=== PATIENT | female | born 1965 | race Caucasian/White ===

== ENCOUNTER 2021-06-18 19:38 | Emergency (ER) | payer BC ==
[2021-06-18 20:18] LABS: HEMOGLOBIN 11.9 gm/dl (12.3-15.3); RED BLOOD COUNT 4.14 M/UL (4.00-5.10); WHITE BLOOD COUNT 10.3 K/UL (4.5-11.0)
[2021-06-18 20:47] LABS: BUN/CREATININE RATIO 14 (0-10)
== END 2021-06-19 00:15 | disposition home or self-care (01) ==
LOC: ER1 19:38
PROVIDERS: Physician Assistant
DX: R07.89 Other chest pain (principal); I10 Essential (primary) hypertension; F17.200 Nicotine dependence, unspecified, uncomplicated
CPT/HCPCS: 71045; 80053; 82550; 82553; 83605; 83874; 84484; 85025; 87040; 93005; 96374; 96375; 99285; J1170; J2405; J7030